=== PATIENT | male | born 1975 | race Caucasian/White ===

== ENCOUNTER → 2016-12-23 11:37 | Emergency (ER) | payer MEDICARE, OTHER ==
--- NOTE | ~2016-12-23 | CR63 ---
[facility] A Service of [facility] & [facility] RADIOLOGY TEXT RESULTS PATIENT: AVELINO NIEVES LOCATION: CFTX : 75 UNIT #: [id number] AGE: [address]: Janie Ma APRN SEX: M ORDER DR: [id number] [facility] [address] [place], [place] [address] [id number] MR#: [id number] Acc #: [id number] NAME: AVELINO NIEVES. : 1975 SEX: M STUDY DATE/TIME: 12/23/2016 10:37 UNIT: [facility] ROOM: STUDY DESCRIPTION: CR Chest 2 View Attending Physician: Janie Ma A.P.R.N. Ordering Physician: Ed Danish Be M.D. Primary Care Physician: No Primary Care Physician MEDICAL IMAGING REPORT This report is preliminary unless electronic signature is present EXAM PA and lateral chest, 2 views, 12/23/2016. COMPARISON Prior chest 07/07/2015. HISTORY Positive PPD. FINDINGS PA and lateral examination of the chest upright shows a good expansion of the parenchyma with a normal distribution of the pulmonary vascularity. There is no indication of congestion, effusion, infiltrate, tumor, or nodular density. The pleural reflections and diaphragmatic contours are normal. The cardiac silhouette and mediastinal anatomy is within normal limits. IMPRESSION Normal chest. Dictated by... Jimmy Ba M.D. THIS IS AN ELECTRONICALLY VERIFIED REPORT Jimmy Ba M.D. at 12/23/2016 2:58 PM PAIGE/paul TD: 12/23/2016 11:59 JOB #: [id number] MEDICAL IMAGING REPORT Page 1 of 1 COPY
[~2016-12-23 11:37] MED LIST: ALPRAZOLAM PO; BACTRIM DS TABL1 TAB PO; CENTRUM PO; CLONIDINE PO; CYMBALTA PO; DICLOFENAC PO; FLEXERIL PO; GLUCOSAMINE PO; IBUPROFEN PO; LEXAPRO PO; LORTAB 7.5-5001 TAB PO; MELOXICAM15 MG PO; NAPROXEN PO; NEURONTIN300 MG PO; NO MEDICATIONS; OPANA ER20 MG PO; OPANA PO; PERCOCET10 PO; PRILOSEC PO; ROBAXIN PO; SEROQUEL PO; SEROQUEL XR150 MG PO; STRATTERA40 MG PO; TYLOX 5/500 CAP1 CAP PO; ZYPREXA20 MG; [UNRECOGNIZED DRUG - REMARK]
== END | disposition home or self-care (01) ==
LOC: CFTX 11:37
DX: Z02.89 Encounter for other administrative examinations (principal); F17.210 Nicotine dependence, cigarettes, uncomplicated; Z85.528 Personal history of other malignant neoplasm of kidney
CPT/HCPCS: 71020; 99283

== ENCOUNTER 2017-01-22 12:03 | Emergency (ER) | payer MEDICARE, OTHER ==
[2017-01-22] MEDS ORDERED: NO MEDICATIONS (12:15)
== END 2017-01-22 13:15 | disposition home or self-care (01) ==
LOC: CED 12:03
DX: F11.10 Opioid abuse, uncomplicated (principal); F31.9 Bipolar disorder, unspecified; F17.200 Nicotine dependence, unspecified, uncomplicated
CPT/HCPCS: 82947; 99282